=== PATIENT | female | born 1995 | race Caucasian/White ===

== ENCOUNTER 2016-03-24 12:30 | Outpatient (RCR) | payer MEDICAID ==
[~2016-03-24 12:30] MED LIST: AMOXICILLIN 50500 MG PO; BACTRIM DS 8001 TAB PO; BIRTH CONTROL PATCH; CANA100T PO; CEFTIN 250250 MG/TAB PO; CEFTIN250 M1 PO; CEFTIN500 MG PO; CIPRO 500MG TA500 MG PO; DEPO-ESTRADIO5 MG/ML IM; FLEXERIL 1010 MG/TAB PO; GLUCOPHAGE850 MG/TAB PO; IBU800 M1 PO; LEVEMIR100 U/ML SQ; LORTAB 5/500 501 TAB PO; MOTRIN 200200 MG/TAB PO; MOTRIN400 MG PO; NAPROSYN500 MG PO; NEXPLANON68 MG; NO HOME MEDICATIONS; NORCO 325 MG-51 TAB PO; NOVLOG SQ; NOVOLIN R100 U/ML SQ; PERCOCET 325 MG1 TA2 PO; PHENERGAN 25 TA25 MG PO; PRAVACHOL 20MG20 MG PO; PREDNISONE10 MG PO; PREDNISONE20 MG PO; PYRIDIUM 100MG100 MG PO; PYRIDIUM200 M1 PO; ULTRAM 50MG TAB50 MG PO; ZOFRAN ODT4 MG PO; ZOFRAN ODT8 MG PO; ZOVIRAX800 MG PO
== END 2016-04-12 12:42 | disposition still patient (30) ==
LOC: WSPT 12:30
DX: M54.5 Low back pain (principal)
CPT/HCPCS: G0283-GP

== ENCOUNTER → 2016-04-07 | Outpatient (CLI) | payer MEDICAID ==
[~2016-04-07] MED LIST changes: +COLACE 100100 MG/CAP PO; +GLUCOPHAGE XR750 MG PO; +MOTRIN 600600 MG/TAB PO; +PERCOCET 325 MG1 TA3 PO; +TRULICITY1.5 MG/0.5 SQ; +ZOCOR 10MG10 MG PO; +ZOFRAN8 MG PO
== END ==
LOC: COL.RAD 12:17
DX: M54.5 Low back pain (principal); M54.16 Radiculopathy, lumbar region

== ENCOUNTER 2016-06-17 00:29 | Emergency (ER) | payer MEDICAID ==
[~2016-06-17] VITALS: Ht 170.2 cm; Wt 109.1 kg
[~2016-06-17 00:29] MED LIST changes: -COLACE 100100 MG/CAP PO; -GLUCOPHAGE XR750 MG PO; -MOTRIN 600600 MG/TAB PO; -PERCOCET 325 MG1 TA3 PO; -TRULICITY1.5 MG/0.5 SQ; -ZOCOR 10MG10 MG PO; -ZOFRAN8 MG PO
[2016-06-17 00:31] VITALS: TEMP 98.1
[2016-06-17 01:38] LABS: PH 6 (5-8); URINE APPEARANCE Hazy; URINE BACTERIA Rare /hpf; URINE BILIRUBIN Negative (NEGATIVE); URINE BLOOD Negative (NEGATIVE); URINE COLOR Yellow; URINE GLUCOSE Negative (NEGATIVE); URINE KETONE Negative (NEGATIVE); URINE RBC 0-2 /hpf; URINE UROBILINOGEN Negative (NEGATIVE); URINE WBC 0-2 /hpf
[2016-06-17] MEDS ORDERED: PHENERGAN 25 TA25 MG PO (02:39)
[2016-06-17 02:49] VITALS: BP 156/105; PULSE 94
== END 2016-06-17 02:50 | disposition home or self-care (01) ==
LOC: COL.ER 00:29
PROVIDERS: Emergency Medicine
DX: K52.9 Noninfective gastroenteritis and colitis, unspecified (principal)
CPT/HCPCS: J2550; J7030

== ENCOUNTER 2016-10-15 15:48 | Emergency (ER) | payer MEDICAID ==
[~2016-10-15] VITALS: Ht 170.2 cm; Wt 112.7 kg
[2016-10-15 15:51] VITALS: TEMP 98
[2016-10-15] MEDS ORDERED: ZOCOR 10MG10 MG PO (15:53)
[2016-10-15] MEDS ORDERED: GLUCOPHAGE XR750 MG PO (15:53)
[2016-10-15] MEDS ORDERED: TRULICITY1.5 MG/0.5 SQ (15:54)
[2016-10-15] MEDS ORDERED: ULTRAM 50MG TAB50 MG PO (16:34)
[2016-10-15] MEDS ORDERED: ZOFRAN8 MG PO (16:34)
[2016-10-15 16:58] LABS: ADJUSTED CALCIUM 9.1 mg/dL (8.4-10.2); ALBUMIN 4.2 gm/dL (3.5-5.0); BILIRUBIN,TOTAL 0.9 mg/dL (0.0-1.0); CALCIUM 9.3 mg/dL (8.4-10.2); CREATININE, serum 0.59 mg/dL (0.52-1.25); POTASSIUM 3.9 mmol/L (3.4-5.0); TOTAL PROTEIN 7.2 gm/dL (6.4-8.2)
[2016-10-15 17:22] LABS: PH 5 (5-8); URINE APPEARANCE Clear; URINE BACTERIA Rare /hpf; URINE BILIRUBIN Negative (NEGATIVE); URINE BLOOD Negative (NEGATIVE); URINE COLOR Yellow; URINE GLUCOSE 3+ (NEGATIVE); URINE KETONE Negative (NEGATIVE); URINE RBC 0-2 /hpf; URINE UROBILINOGEN Negative (NEGATIVE); URINE WBC 0-2 /hpf
[2016-10-15 18:02] VITALS: BP 134/72; PULSE 72
== END 2016-10-15 18:03 | disposition home or self-care (01) ==
LOC: COL.ER 15:48
PROVIDERS: Emergency Medicine
DX: R10.13 Epigastric pain (principal); R10.12 Left upper quadrant pain; R19.7 Diarrhea, unspecified; E11.9 Type 2 diabetes mellitus without complications; E78.5 Hyperlipidemia, unspecified; F17.210 Nicotine dependence, cigarettes, uncomplicated; Z79.84 Long term (current) use of oral hypoglycemic drugs; Z98.890 Other specified postprocedural states
CPT/HCPCS: J1170; J1885; J2405; J7030

== ENCOUNTER 2016-11-14 20:33 | Observation (INO) | payer MEDICAID ==
[~2016-11-14] VITALS: Ht 170.2 cm; Wt 100.9 kg
[~2016-11-14 20:33] MED LIST changes: +GLUCOPHAGE XR750 MG PO; +TRULICITY1.5 MG/0.5 SQ; +ZOCOR 10MG10 MG PO; +ZOFRAN8 MG PO
[2016-11-14 21:10] LABS: BASO # 0.1 (0.0-0.2); BASO % 0.5 % (0.0-2.0); EOS # 0.2 (0.0-0.7); EOS % 1.4 % (0-4.0); GRAN # 7.5 (1.4-6.5); GRAN % 67.1 % (42.2-75.2); HEMOGLOBIN 15.3 g/dl (12.5-16.0); LYMPH # 2.8 (1.2-3.4); LYMPH % 25.1 % (20.0-51.0); MEAN CELL VOLUME 89 fl (80.0-100.0); MEAN CORPUSCULAR HEMOGLOBIN 30 pg (27.0-31.0); MEAN CORPUSCULAR HGB CONC 34 g/dl (33.0-37.0); MEAN PLATELET VOLUME 9.6 fl (7.4-10.4); MONO # 0.6 (0.1-0.6); MONO % 5.4 % (1.7-9.3); PLATELET COUNT 298 K/mm3 (130-400); RED BLOOD COUNT 5.08 M/mm3 (4.10-5.30); REDCELL DISTRIBUTION WIDTH-CV 12.4 % (11.5-14.5); WHITE BLOOD COUNT 11.1 K/mm3 (4.8-10.8)
[2016-11-14 21:15] LABS: PH 7 (5-8); URINE APPEARANCE Hazy; URINE BACTERIA Rare /hpf; URINE BILIRUBIN Negative (NEGATIVE); URINE BLOOD Negative (NEGATIVE); URINE COLOR Yellow; URINE GLUCOSE 3+ (NEGATIVE); URINE KETONE Negative (NEGATIVE); URINE UROBILINOGEN Negative (NEGATIVE)
[2016-11-14 21:24] LABS: ADJUSTED CALCIUM 9.3 mg/dL (8.4-10.2); ALBUMIN 4.5 gm/dL (3.5-5.0); BILIRUBIN,TOTAL 0.6 mg/dL (0.0-1.0); C-REACTIVE PROTEIN 1.3 mg/dL (0.0-0.9); CALCIUM 9.7 mg/dL (8.4-10.2); CREATININE, serum 0.68 mg/dL (0.52-1.25); POTASSIUM 3.8 mmol/L (3.4-5.0); TOTAL PROTEIN 7.9 gm/dL (6.4-8.2)
[2016-11-15] VITALS (13 sets, daily range): BP systolic 111–140; BP diastolic 50–97; PULSE 68–96; TEMP 97.8–99
[2016-11-15 08:10] LABS: BASO # 0.1 (0.0-0.2); BASO % 0.5 % (0.0-2.0); EOS # 0.1 (0.0-0.7); EOS % 0.9 % (0-4.0); GRAN # 11.4 (1.4-6.5); GRAN % 77.3 % (42.2-75.2); HEMATOCRIT 41.6 % (37.0-47.0); HEMOGLOBIN 13.8 g/dl (12.5-16.0); LYMPH # 2.3 (1.2-3.4); LYMPH % 15.7 % (20.0-51.0); MEAN CELL VOLUME 91 fl (80.0-100.0); MEAN CORPUSCULAR HEMOGLOBIN 30 pg (27.0-31.0); MEAN CORPUSCULAR HGB CONC 33 g/dl (33.0-37.0); MEAN PLATELET VOLUME 9.9 fl (7.4-10.4); MONO # 0.8 (0.1-0.6); MONO % 5.1 % (1.7-9.3); PLATELET COUNT 255 K/mm3 (130-400); RED BLOOD COUNT 4.57 M/mm3 (4.10-5.30); REDCELL DISTRIBUTION WIDTH-CV 12.5 % (11.5-14.5); WHITE BLOOD COUNT 14.8 K/mm3 (4.8-10.8)
[2016-11-16 01:29] VITALS: BP 117/66; PULSE 85; TEMP 98.1
[2016-11-16 05:31] VITALS: BP 110/63; PULSE 69; TEMP 98.3
[2016-11-16 09:52] VITALS: BP 117/49; PULSE 81; TEMP 98.1
[2016-11-16] MEDS ORDERED: PERCOCET 325 MG1 TA3 PO (12:48)
[2016-11-16] MEDS ORDERED: COLACE 100100 MG/CAP PO (12:49)
[2016-11-16] MEDS ORDERED: MOTRIN 600600 MG/TAB PO (12:49)
[2016-11-16 13:42] VITALS: BP 121/59; PULSE 89; TEMP 97.5
== END 2016-11-16 15:20 | disposition home or self-care (01) ==
LOC: COL.ER 20:33 → SURG 22:57
PROVIDERS: Emergency Medicine
DX: K38.8 Other specified diseases of appendix (principal); E11.9 Type 2 diabetes mellitus without complications; R16.0 Hepatomegaly, not elsewhere classified; K76.0 Fatty (change of) liver, not elsewhere classified; E66.9 Obesity, unspecified; F17.210 Nicotine dependence, cigarettes, uncomplicated; Z87.442 Personal history of urinary calculi; R06.83 Snoring
CPT/HCPCS: G0378; J1100; J1170; J1815; J1885; J2270; J2405; J2704; J2710; J3010; J7030

== ENCOUNTER 2017-02-14 12:00 | Emergency (ER) | payer MEDICAID ==
[~2017-02-14] VITALS: Ht 170.2 cm; Wt 107.7 kg
[~2017-02-14 12:00] MED LIST changes: +COLACE 100100 MG/CAP PO; +MOTRIN 600600 MG/TAB PO; +PERCOCET 325 MG1 TA3 PO
[2017-02-14 12:03] VITALS: BP 152/80; TEMP 97.5
[2017-02-14 13:40] LABS: COLLECTION METHOD CLEAN CATCH
[2017-02-14 13:47] LABS: BASO # 0.1 (0.0-0.2); BASO % 0.6 % (0.0-2.0); EOS # 0.2 (0.0-0.7); EOS % 1.3 % (0-4.0); GRAN # 7.4 (1.4-6.5); GRAN % 63.8 % (42.2-75.2); HEMATOCRIT 46.5 % (37.0-47.0); HEMOGLOBIN 16.2 g/dl (12.5-16.0); LYMPH # 3.4 (1.2-3.4); LYMPH % 29.2 % (20.0-51.0); MEAN CELL VOLUME 88 fl (80.0-100.0); MEAN CORPUSCULAR HEMOGLOBIN 31 pg (27.0-31.0); MEAN CORPUSCULAR HGB CONC 35 g/dl (33.0-37.0); MONO # 0.6 (0.1-0.6); MONO % 4.7 % (1.7-9.3); PLATELET COUNT 289 K/mm3 (130-400); RED BLOOD COUNT 5.31 M/mm3 (4.10-5.30); WHITE BLOOD COUNT 11.6 K/mm3 (4.8-10.8)
[2017-02-14 13:58] LABS: PH 6 (5-8); SQUAMOUS EPITHELIAL 0-2 /hpf; URINE APPEARANCE Clear; URINE BACTERIA None Seen /hpf; URINE BILIRUBIN Negative (NEGATIVE); URINE BLOOD Negative (NEGATIVE); URINE COLOR Straw; URINE GLUCOSE 3+ (NEGATIVE); URINE KETONE Trace (NEGATIVE); URINE LEUKOCYTE ESTERASE Negative (NEGATIVE); URINE PROTEIN(semi-quant) Negative (NEGATIVE); URINE UROBILINOGEN Negative (NEGATIVE); URINE WBC 0-2 /hpf
[2017-02-14 14:10] LABS: ADJUSTED CALCIUM 9.1 mg/dL (8.4-10.2); ALBUMIN 4.9 gm/dL (3.5-5.0); BILIRUBIN,TOTAL 0.6 mg/dL (0.0-1.0); CALCIUM 9.8 mg/dL (8.4-10.2); CREATININE, serum 0.64 mg/dL (0.52-1.25); POTASSIUM 3.7 mmol/L (3.4-5.0); TOTAL PROTEIN 8.1 gm/dL (6.4-8.2)
[2017-02-14] MEDS ORDERED: GLUCOPHAGE XR750 MG PO (14:20)
[2017-02-14] MEDS ORDERED: FREESTYLE PREC1 EAC5 MC (14:25)
[2017-02-14 15:04] VITALS: PULSE 81
== END 2017-02-14 15:08 | disposition home or self-care (01) ==
LOC: COL.ER 12:00
PROVIDERS: Emergency Medicine
DX: E11.65 Type 2 diabetes mellitus with hyperglycemia (principal); I10 Essential (primary) hypertension; E78.5 Hyperlipidemia, unspecified; F17.210 Nicotine dependence, cigarettes, uncomplicated; Z91.14 Patient's other noncompliance with medication regimen; Z79.84 Long term (current) use of oral hypoglycemic drugs
CPT/HCPCS: J7030

== ENCOUNTER 2017-04-19 09:11 | Emergency (ER) | payer MEDICAID ==
[~2017-04-19] VITALS: Ht 170.2 cm; Wt 104.5 kg
[~2017-04-19 09:11] MED LIST changes: +FREESTYLE PREC1 EAC5 MC
[2017-04-19 09:36] VITALS: BP 157/95; TEMP 98.3
[2017-04-19 12:02] VITALS: PULSE 88
== END 2017-04-19 12:03 | disposition home or self-care (01) ==
LOC: COL.ER 09:11
DX: J02.9 Acute pharyngitis, unspecified (principal); E11.9 Type 2 diabetes mellitus without complications; E78.5 Hyperlipidemia, unspecified; F17.210 Nicotine dependence, cigarettes, uncomplicated; Z90.89 Acquired absence of other organs

== ENCOUNTER 2017-06-06 22:04 | Emergency (ER) | payer MEDICAID ==
[~2017-06-06] VITALS: Ht 170.2 cm; Wt 100.0 kg
[2017-06-06 22:06] VITALS: TEMP 97.5
[2017-06-07] VITALS: BP 134/60; PULSE 70
== END 2017-06-07 00:03 | disposition home or self-care (01) ==
LOC: COL.ER 22:04
DX: S63.502A Unspecified sprain of left wrist, initial encounter (principal); E78.00 Pure hypercholesterolemia, unspecified; F17.210 Nicotine dependence, cigarettes, uncomplicated; E11.9 Type 2 diabetes mellitus without complications; W01.0XXA Fall on same level from slipping, tripping and stumbling without subsequent striking against object, initial encounter

== ENCOUNTER → 2017-12-18 | Outpatient (CLI) | payer MEDICAID | LOC: SUN.DIA 08:45 | DX: O24.419 Gestational diabetes mellitus in pregnancy, unspecified control (principal); Z3A.19 19 weeks gestation of pregnancy | CPT/HCPCS: G0108 ==

== ENCOUNTER 2017-12-20 09:20 | Emergency (ER) | payer MEDICAID ==
[~2017-12-20] VITALS: Ht 170.2 cm; Wt 105.0 kg
[2017-12-20 09:29] VITALS: TEMP 97.9
[2017-12-20] MEDS ORDERED: NOVOLOG FLEX100 U/ML SQ (09:32)
[2017-12-20] MEDS ORDERED: LEVEMIR FLEX100 U/ML SQ (09:32)
[2017-12-20] MEDS ORDERED: [UNRECOGNIZED DRUG - OTHER] PO (09:33)
[2017-12-20 10:25] LABS: BASO # 0.1 (0.0-0.2); BASO % 0.6 % (0.0-2.0); EOS # 0.1 (0.0-0.7); EOS % 0.5 % (0-4.0); GRAN # 7.9 (1.4-6.5); GRAN % 71.4 % (42.2-75.2); HEMATOCRIT 43.4 % (37.0-47.0); HEMOGLOBIN 14.8 g/dl (12.5-16.0); LYMPH # 2.4 (1.2-3.4); LYMPH % 22.1 % (20.0-51.0); MEAN CELL VOLUME 87 fl (80.0-100.0); MEAN CORPUSCULAR HEMOGLOBIN 30 pg (27.0-31.0); MEAN CORPUSCULAR HGB CONC 34 g/dl (33.0-37.0); MONO # 0.5 (0.1-0.6); MONO % 4.9 % (1.7-9.3); PLATELET COUNT 301 K/mm3 (130-400); RED BLOOD COUNT 4.97 M/mm3 (4.10-5.30); REDCELL DISTRIBUTION WIDTH-CV 11.9 % (11.5-14.5)
[2017-12-20 10:34] LABS: ALBUMIN 4.3 gm/dL (3.5-5.0); BILIRUBIN,TOTAL 0.7 mg/dL (0.0-1.0); CALCIUM 10.3 mg/dL (8.4-10.2); CREATININE, serum 0.56 mg/dL (0.52-1.25); POTASSIUM 3.9 mmol/L (3.4-5.0); TOTAL PROTEIN 7.9 gm/dL (6.4-8.2)
[2017-12-20] MEDS ORDERED: ZOFRAN ODT8 MG PO (13:28)
[2017-12-20 13:41] VITALS: BP 98/53; PULSE 81
== END 2017-12-20 13:43 | disposition home or self-care (01) ==
LOC: COL.ER 09:20
PROVIDERS: Emergency Medicine
DX: O26.891 Other specified pregnancy related conditions, first trimester (principal); R51 Headache; O21.9 Vomiting of pregnancy, unspecified; O24.911 Unspecified diabetes mellitus in pregnancy, first trimester; Z3A.01 Less than 8 weeks gestation of pregnancy; Z79.4 Long term (current) use of insulin
CPT/HCPCS: J1200; J2405; J2765; J7030; Q9967

== ENCOUNTER 2018-01-29 14:45 | Emergency (ER) | payer MEDICAID ==
[~2018-01-29] VITALS: Ht 170.2 cm; Wt 100.0 kg
[~2018-01-29 14:45] MED LIST changes: +LEVEMIR FLEX100 U/ML SQ; +NOVOLOG FLEX100 U/ML SQ; +[UNRECOGNIZED DRUG - OTHER] PO
[2018-01-29 14:51] VITALS: BP 121/59; PULSE 102; TEMP 98.4
[2018-01-29] MEDS ORDERED: BACTRIM DS 8001 TAB PO (15:07)
== END 2018-01-29 15:37 | disposition home or self-care (01) ==
LOC: COL.ER 14:45
DX: L03.011 Cellulitis of right finger (principal); E11.9 Type 2 diabetes mellitus without complications; Z79.4 Long term (current) use of insulin

== ENCOUNTER 2018-05-26 10:50 | Outpatient (CLI) | payer MEDICAID ==
[~2018-05-26] VITALS: Ht 170.2 cm; Wt 114.5 kg
--- NOTE | 2018-05-26 11:00 | NUR ---
Patient ambulatory onto unit for evaluation with report of decreased movement. Reports not feeling baby move since yesterday morning. Denies any cramping, contractions, vaginal bleeding, or leaking of fluid. Denies nausea, vomiting, or any other complaints. Reports last blood sugar was 95, taken at 1045. States blood sugars have been within normal limits. EFMs on, VS taken. Audible movement. Assessment completed by Ellen MUHAMMAD. notified of patient on unit, orders received.
[2018-05-26 11:05] VITALS: BP 135/63; PULSE 88; TEMP 97.3
[2018-05-26 11:30] VITALS: BP 135/63; PULSE 88; TEMP 97.3
--- NOTE | 2018-05-26 11:30 | NUR ---
1130-FHR with audible movment, difficulty tracing due to maternal habitus and movement, repositioned LL. Patient states "I can really feel movement now." 1155-patient off EFM 1200-Reviewed kick counts and when to return to hospital. Reviewed discharge instructions from MD. Patient verbalized understanding. 1204-Ambulatory off unit with siginifican other.
[2018-05-26 11:55] VITALS: BP 119/66; PULSE 93
== END 2018-05-26 12:04 | disposition home or self-care (01) ==
LOC: LDRO 10:50
DX: O36.8130 Decreased fetal movements, third trimester, not applicable or unspecified (principal); Z3A.29 29 weeks gestation of pregnancy

== ENCOUNTER 2018-07-24 02:05 | Outpatient (CLI) | payer MEDICAID ==
[~2018-07-24] VITALS: Ht 170.2 cm; Wt 118.2 kg
--- NOTE | 2018-07-24 02:20 | NUR ---
PT HER WITH FOB FOR SROM EXAM. STATES SHE HAS MOISTURE FROM VAGINA BEGINNING AT 22 LAST NIGHT.
[2018-07-24] MEDS ORDERED: NOVOLOG 100U100 U/M1 SQ (02:39)
[2018-07-24] MEDS ORDERED: LEVEMIR100 U/ML SQ (02:40)
[2018-07-24 02:41] VITALS: BP 132/62; PULSE 108; TEMP 98.5
--- NOTE | 2018-07-24 02:50 | NUR ---
LIFETRACE OLIVE GREEN,SINLE SPOT OF DK BLUE. PT GIVEN PAD TO WEAR AND AMBULATE TO REASSESS. GEL WAS NOT USED FOR INITIAL EXAM.NO VISIBLE FLUID WHEN ASKED TO COUGH
--- NOTE | 2018-07-24 03:25 | NUR ---
0320 HAS AMBULATED 30 MIN WITH CLEAN PD. NO FURTHER FLUID LEAKING. SWAB OF PAD NEGATIVE. DENIES CTXS. REPORTED TO DR VIRAMONTES. DISCHARGE ORDERS OBTAINED
--- NOTE | 2018-07-24 03:25 | NUR ---
DISCHARGE INSTR REVIEWED WITH PT. VERBALIZED UNDERTANDING RE:S/S OF SROM AND WHEN TO CALL OR COME TO HOSPITALOR OFFICE FOR EXAM
== END 2018-07-24 03:30 | disposition home or self-care (01) ==
LOC: LDRO 02:05
DX: Z34.93 Encounter for supervision of normal pregnancy, unspecified, third trimester (principal); Z3A.38 38 weeks gestation of pregnancy

== ENCOUNTER 2018-07-30 06:59 | Inpatient (IN) | payer MEDICAID ==
[2018-07-30] VITALS (50 sets, daily range): BP systolic 88–146; BP diastolic 45–86; PULSE 75–142; TEMP 97.4–99.4
[~2018-07-30] VITALS: Ht 170.2 cm; Wt 119.1 kg
[~2018-07-30 06:59] MED LIST changes: +NOVOLOG 100U100 U/M1 SQ
--- NOTE | 2018-07-30 07:10 | NUR ---
Pt arrives on unit ambulatory with FOB for induction of labor at 39.1 weeks gestation. Pt states good FM, denies vaginal bleeding, regular contractions, and leaking of fluid. Oriented to room. Changed into clean gown. FHM and TOCO applied. VSS. IV started in RW. Admission assessment completed. Consents signed. Bed locked in low position. No questions or concerns at this time.
[2018-07-30] MEDS ORDERED: LEVEMIR FLEX100 U/ML SQ (07:27)
[2018-07-30 07:54] LABS: BASO # 0.1 (0.0-0.2); BASO % 0.5 % (0.0-2.0); EOS # 0.1 (0.0-0.7); EOS % 0.8 % (0-4.0); GRAN # 7.4 (1.4-6.5); GRAN % 69.9 % (42.2-75.2); HEMOGLOBIN 11.7 g/dl (12.5-16.0); LYMPH # 2.4 (1.2-3.4); LYMPH % 23.1 % (20.0-51.0); MEAN CELL VOLUME 85 fl (80.0-100.0); MEAN CORPUSCULAR HEMOGLOBIN 28 pg (27.0-31.0); MEAN CORPUSCULAR HGB CONC 33 g/dl (33.0-37.0); MEAN PLATELET VOLUME 9.4 fl (7.4-10.4); MONO # 0.5 (0.1-0.6); MONO % 4.8 % (1.7-9.3); PLATELET COUNT 249 K/mm3 (130-400); RED BLOOD COUNT 4.23 M/mm3 (4.10-5.30); REDCELL DISTRIBUTION WIDTH-CV 13.6 % (11.5-14.5)
[2018-07-30 08:28] LABS: TRICYCLIC ANTIDEPRESS URINE NEGATIVE
--- NOTE | 2018-07-30 11:59 | NUR ---
Pt up to [facility]. 1205 - Returns to birthing ball. Difficulty tracing FHR due to maternal position. RN at bedside adjusting monitors. FHR audible. 1220 - Pt requesting epidural at this time. Sitting up in bed. Difficulty tracing FHR due to maternal position. RN at bedside adjusting monitors. FHR audible. 1242 - Test dose administered by Roselia Jones CRNA. No adverse effects noted. See anesthesia record.
--- NOTE | 2018-07-30 17:20 | NUR ---
Pt reports feeling pressure. RN at bedside. SVE 9-10/100/0.
--- NOTE | 2018-07-30 17:25 | NUR ---
Pt calling out with increase of pressure. SVE per this RN C/+2. Dr. Pyle called for delivery. 1728-Dr. Pyle on unit. Begins pushing with pt. 1732- of viable female infant attended by Dr. Pyle. Cord clamped x 2 and cut from umbilicus. Infant dried and placed on mother's abdomen. Apgars 8/9/9. Care of infant to Genny Guthrie RN. 1739- of placenta. Fundus firm at umbilicus. Bleeding WNL. Pericare provided. Pitocin bolus infusing per protocol. 1741-Moderate amount of free flow noted. Orders per Dr. Pyle for methergine. See EMAR.
--- NOTE | 2018-07-30 18:20 | NUR ---
AC BS 117
--- NOTE | 2018-07-30 21:30 | NUR ---
BG 119
--- NOTE | 2018-07-30 23:07 | NUR ---
TO BRI PER FOR BATH DEMO
[2018-07-31] VITALS: BP 108/54; PULSE 90; TEMP 98.8
[2018-07-31 04:00] VITALS: BP 117/62; PULSE 91; TEMP 97.6
--- NOTE | 2018-07-31 06:30 | NUR ---
Fasting blood glucose per patient is 80.
[2018-07-31 07:00] VITALS: BP 127/73; PULSE 85; TEMP 97.8
--- NOTE | 2018-07-31 09:00 | NUR ---
AC blood sugar per patient is 95
--- NOTE | 2018-07-31 10:07 | NUR ---
Initial visit; Parents thanked for offering congratulations for the of their daughter. Laborer Operator thanked family for choosing [facility].
--- NOTE | 2018-07-31 10:07 | NUR ---
fast foods worker met with patient to assess needs. Patient states she has a 4 year old at home and she is a stay at home mom. Patient states she is enrolled in WIC and has all needed supplies for her baby. Worker provided layette set from [employer] and resource booklet/pamphlets. Worker collaborated with nurse on needs assessment.
[2018-07-31 10:55] VITALS: BP 115/72; PULSE 82; TEMP 97.7
--- NOTE | 2018-07-31 14:00 | NUR ---
AC blood sugar per patient is 138.
[2018-07-31 15:03] VITALS: BP 119/65; PULSE 93; TEMP 98.5
[2018-07-31 21:30] VITALS: BP 119/58; PULSE 84; TEMP 98.4
[2018-08-01 07:00] VITALS: BP 115/72; PULSE 78; TEMP 97.4
--- NOTE | 2018-08-01 07:00 | NUR ---
Rests in bed, alert. Assessment done. Baby to lab for repeat bilirubin. Reports blood sugar at 67. States eating some salad and dressing. Says has ordered breakfast. Let her know to notify this nurse if needing anything else to eat.
[2018-08-01] MEDS ORDERED: IBU600 MG PO (07:44)
--- NOTE | 2018-08-01 13:00 | NUR ---
Rests in bed, alert. Denies any needs at this time.
--- NOTE | 2018-08-01 15:00 | NUR ---
Discharge instructions given, verbalizes understanding. 1515 Dismissed to home with instructions. Alert, stable, ambulatory.
--- NOTE | 2018-08-02 08:29 | NUR ---
SW received cord blood results. Baby's tests were all negative.
== END 2018-08-01 15:15 | disposition home or self-care (01) | DRG 807 ==
LOC: LDR 06:59 → OB 06:59 → LDR 07:14 → OB 20:45
PROVIDERS: ADMIT Obstetrics & Gynecology
PROC: 10E0XZZ Delivery of Products of Conception, External Approach (ICD-10-PCS; principal; 2018-07-30)
PROC: 10907ZC Drainage of Amniotic Fluid, Therapeutic from Products of Conception, Via Natural or Artificial Opening (ICD-10-PCS; 2018-07-30)
PROC: 3E033VJ Introduction of Other Hormone into Peripheral Vein, Percutaneous Approach (ICD-10-PCS; 2018-07-30)
DX: O24.12 Pre-existing type 2 diabetes mellitus, in childbirth (principal); Z37.0 Single live birth; O99.344 Other mental disorders complicating childbirth; O99.214 Obesity complicating childbirth; O62.2 Other uterine inertia; O99.62 Diseases of the digestive system complicating childbirth; K21.9 Gastro-esophageal reflux disease without esophagitis; F41.9 Anxiety disorder, unspecified; F32.9 Major depressive disorder, single episode, unspecified; Z3A.39 39 weeks gestation of pregnancy; Z79.4 Long term (current) use of insulin
CPT/HCPCS: J1200; J2210; J2405; J2540; J2590; J7030

== ENCOUNTER 2018-10-02 02:13 | Emergency (ER) | payer MEDICAID ==
[~2018-10-02] VITALS: Ht 170.2 cm; Wt 108.2 kg
[~2018-10-02 02:13] MED LIST changes: +IBU600 MG PO
[2018-10-02 02:21] VITALS: TEMP 98
[2018-10-02] MEDS ORDERED: GLUCOPHAGE500 MG/TAB PO (02:23)
[2018-10-02] MEDS ORDERED: PROZAC 10MG10 MG PO (02:23)
[2018-10-02] MEDS ORDERED: BIRTH CONTROL (02:24)
[2018-10-02 02:35] LABS: BASO % 0.3 % (0.0-2.0); EOS # 0.1 (0.0-0.7); EOS % 0.8 % (0-4.0); GRAN # 7.1 (1.4-6.5); HEMATOCRIT 40.2 % (37.0-47.0); HEMOGLOBIN 12.9 g/dl (12.5-16.0); LYMPH % 34.4 % (20.0-51.0); MEAN CELL VOLUME 85 fl (80.0-100.0); MEAN CORPUSCULAR HEMOGLOBIN 27 pg (27.0-31.0); MEAN CORPUSCULAR HGB CONC 32 g/dl (33.0-37.0); MEAN PLATELET VOLUME 9.1 fl (7.4-10.4); MONO # 0.5 (0.1-0.6); MONO % 4.2 % (1.7-9.3); PLATELET COUNT 313 K/mm3 (130-400); RED BLOOD COUNT 4.76 M/mm3 (4.10-5.30); REDCELL DISTRIBUTION WIDTH-CV 14.1 % (11.5-14.5)
[2018-10-02 02:48] LABS: ALBUMIN 3.9 gm/dL (3.5-5.0); BILIRUBIN,TOTAL 0.2 mg/dL (0.0-1.0); C-REACTIVE PROTEIN 1.5 mg/dL (0.0-0.9); CALCIUM 9.4 mg/dL (8.4-10.2); CREATININE, serum 0.84 (0.52-1.25); TOTAL PROTEIN 7.2 gm/dL (6.4-8.2)
[2018-10-02 03:01] LABS: COLLECTION METHOD CLEAN CATCH
[2018-10-02 03:10] LABS: URINE APPEARANCE Hazy; URINE COLOR Yellow
[2018-10-02 03:11] LABS: PH 5 (5-8); URINE BILIRUBIN Negative (NEGATIVE); URINE BLOOD Negative (NEGATIVE); URINE GLUCOSE Negative (NEGATIVE); URINE KETONE Negative (NEGATIVE); URINE LEUKOCYTE ESTERASE Trace (NEGATIVE); URINE NITRATE Negative (NEGATIVE); URINE PROTEIN(semi-quant) 1+ (NEGATIVE); URINE UROBILINOGEN Negative (NEGATIVE)
[2018-10-02] MEDS ORDERED: PHENERGAN 25 TA25 MG PO (04:45)
[2018-10-02 06:16] VITALS: BP 131/86; PULSE 86
== END 2018-10-02 06:28 | disposition home or self-care (01) ==
LOC: COL.ER 02:13
PROVIDERS: Nurse Practitioner
DX: R10.11 Right upper quadrant pain (principal); E11.9 Type 2 diabetes mellitus without complications; F12.90 Cannabis use, unspecified, uncomplicated; Z87.442 Personal history of urinary calculi; Z79.84 Long term (current) use of oral hypoglycemic drugs; Z90.89 Acquired absence of other organs
CPT/HCPCS: J1170; J2405; J2550; J7030; Q9967

== ENCOUNTER → 2018-10-12 | Outpatient (CLI) | payer MEDICAID ==
[~2018-10-12] MED LIST changes: +BIRTH CONTROL; +GLUCOPHAGE500 MG/TAB PO; +PROZAC 10MG10 MG PO
== END ==
LOC: ZCOL.LAB 16:51
DX: N89.8 Other specified noninflammatory disorders of vagina (principal)

== ENCOUNTER 2018-12-12 14:03 | Emergency (ER) | payer MEDICAID ==
[~2018-12-12] VITALS: Ht 170.2 cm; Wt 111.4 kg
[2018-12-12 14:12] VITALS: BP 155/91
[2018-12-12 14:54] LABS: BASO # 0.1 (0.0-0.2); BASO % 0.8 % (0.0-2.0); EOS # 0.1 (0.0-0.7); GRAN # 5.5 (1.4-6.5); GRAN % 63.3 % (42.2-75.2); HEMATOCRIT 42.2 % (37.0-47.0); HEMOGLOBIN 14.1 g/dl (12.5-16.0); LYMPH # 2.5 (1.2-3.4); LYMPH % 28.5 % (20.0-51.0); MEAN CELL VOLUME 84 fl (80.0-100.0); MEAN CORPUSCULAR HEMOGLOBIN 28 pg (27.0-31.0); MEAN CORPUSCULAR HGB CONC 33 g/dl (33.0-37.0); MEAN PLATELET VOLUME 8.9 fl (7.4-10.4); MONO # 0.5 (0.1-0.6); MONO % 5.9 % (1.7-9.3); PLATELET COUNT 304 K/mm3 (130-400); REDCELL DISTRIBUTION WIDTH-CV 12.7 % (11.5-14.5)
[2018-12-12 14:59] LABS: COLLECTION METHOD CLEAN CATCH
[2018-12-12 15:07] LABS: MUCOUS Present /lpf; PH 5 (5-8); URINE APPEARANCE Hazy; URINE BACTERIA Rare /hpf; URINE BILIRUBIN Negative (NEGATIVE); URINE BLOOD Negative (NEGATIVE); URINE COLOR Yellow; URINE GLUCOSE Negative (NEGATIVE); URINE KETONE Negative (NEGATIVE); URINE LEUKOCYTE ESTERASE Negative (NEGATIVE); URINE NITRATE Negative (NEGATIVE); URINE PROTEIN(semi-quant) 1+ (NEGATIVE); URINE RBC 0-2 /hpf; URINE UROBILINOGEN Negative (NEGATIVE)
[2018-12-12 15:09] LABS: ALBUMIN 4.2 gm/dL (3.5-5.0); BILIRUBIN,TOTAL 0.4 mg/dL (0.0-1.0); CALCIUM 9.4 mg/dL (8.4-10.2); CREATININE, serum 0.51 (0.52-1.25); TOTAL PROTEIN 7.8 gm/dL (6.4-8.2)
[2018-12-12] MEDS ORDERED: BONINE25 MG PO (15:33)
[2018-12-12 15:44] VITALS: PULSE 78; TEMP 98.2
== END 2018-12-12 15:47 | disposition home or self-care (01) ==
LOC: COL.ER 14:03
PROVIDERS: Family Medicine
DX: H81.22 Vestibular neuronitis, left ear (principal); E11.9 Type 2 diabetes mellitus without complications; Z79.84 Long term (current) use of oral hypoglycemic drugs
CPT/HCPCS: J7030

== ENCOUNTER → 2019-01-09 | Outpatient (CLI) | payer MEDICAID ==
[~2019-01-09] MED LIST changes: +BONINE25 MG PO
== END ==
LOC: COL.RAD 10:38
DX: R05 Cough (principal)

== ENCOUNTER 2019-01-20 20:23 | Emergency (ER) | payer MEDICAID ==
[~2019-01-20] VITALS: Ht 170.2 cm; Wt 113.6 kg
[2019-01-20 20:31] VITALS: TEMP 98.3
[2019-01-20 23:31] VITALS: BP 136/86; PULSE 85
== END 2019-01-20 23:31 | disposition home or self-care (01) ==
LOC: COL.ER 20:23
DX: R51 Headache (principal); E11.9 Type 2 diabetes mellitus without complications; Z87.891 Personal history of nicotine dependence; Z87.442 Personal history of urinary calculi; Z79.84 Long term (current) use of oral hypoglycemic drugs
CPT/HCPCS: J1200; J1885; J2765; J7030

== ENCOUNTER → 2019-03-12 | Outpatient (CLI) | payer MEDICAID ==
[2019-03-12 12:23] LABS: CHOLESTEROL RISK RATIO 6.5
[2019-03-12 12:55] LABS: THYROID STIMULATING HORMONE 1.13 uIU/mL (0.465-4.680)
== END ==
LOC: COL.LAB 11:43
PROVIDERS: Family Medicine
DX: Z13.220 Encounter for screening for lipoid disorders (principal); Z13.228 Encounter for screening for other metabolic disorders; E11.65 Type 2 diabetes mellitus with hyperglycemia; E66.01 Morbid (severe) obesity due to excess calories

== ENCOUNTER 2019-04-04 13:12 | Emergency (ER) | payer MEDICAID ==
[~2019-04-04] VITALS: Ht 170.2 cm; Wt 111.4 kg
[2019-04-04 13:16] VITALS: TEMP 97.5
[2019-04-04 13:46] LABS: BASO # 0.1 (0.0-0.2); BASO % 0.8 % (0.0-2.0); EOS # 0.1 (0.0-0.7); EOS % 0.8 % (0-4.0); GRAN # 6.3 (1.4-6.5); GRAN % 64.6 % (42.2-75.2); HEMATOCRIT 44.5 % (37.0-47.0); HEMOGLOBIN 14.9 g/dl (12.5-16.0); LYMPH # 2.8 (1.2-3.4); LYMPH % 28.4 % (20.0-51.0); MEAN CELL VOLUME 85 fl (80.0-100.0); MEAN CORPUSCULAR HEMOGLOBIN 29 pg (27.0-31.0); MEAN CORPUSCULAR HGB CONC 34 g/dl (33.0-37.0); MEAN PLATELET VOLUME 9.3 fl (7.4-10.4); MONO # 0.5 (0.1-0.6); MONO % 5.1 % (1.7-9.3); PLATELET COUNT 310 K/mm3 (130-400); RED BLOOD COUNT 5.21 M/mm3 (4.10-5.30); REDCELL DISTRIBUTION WIDTH-CV 12.6 % (11.5-14.5)
[2019-04-04] MEDS ORDERED: PHENERGAN 25 TA25 MG PO (13:59)
[2019-04-04 14:01] LABS: ALBUMIN 4.2 gm/dL (3.5-5.0); BILIRUBIN,TOTAL 0.5 mg/dL (0.0-1.0); CALCIUM 9.4 mg/dL (8.4-10.2); CREATININE, serum 0.51 (0.52-1.25); POTASSIUM 4.3 mmol/L (3.4-5.0); TOTAL PROTEIN 7.9 gm/dL (6.4-8.2)
[2019-04-04 15:21] LABS: COLLECTION METHOD CLEAN CATCH
[2019-04-04 15:30] LABS: MUCOUS Present /lpf; PH 5 (5-8); SQUAMOUS EPITHELIAL 0-2 /hpf; URINE APPEARANCE Clear; URINE BACTERIA None Seen /hpf; URINE BILIRUBIN Negative (NEGATIVE); URINE BLOOD Negative (NEGATIVE); URINE COLOR Yellow; URINE GLUCOSE 3+ (NEGATIVE); URINE KETONE Trace (NEGATIVE); URINE LEUKOCYTE ESTERASE Negative (NEGATIVE); URINE NITRATE Negative (NEGATIVE); URINE PROTEIN(semi-quant) Negative (NEGATIVE); URINE RBC 0-2 /hpf; URINE UROBILINOGEN Negative (NEGATIVE)
[2019-04-04 15:49] VITALS: BP 127/79; PULSE 84
[2019-04-10] MEDS ORDERED: LEVEMIR FLEX100 U/ML SQ (10:06)
[2019-04-10] MEDS ORDERED: NOVOLOG FLEX100 U/ML SQ (10:07)
== END 2019-04-04 15:50 | disposition home or self-care (01) ==
LOC: COL.ER 13:12
PROVIDERS: Emergency Medicine
DX: R11.2 Nausea with vomiting, unspecified (principal); R19.7 Diarrhea, unspecified; E86.0 Dehydration; E11.9 Type 2 diabetes mellitus without complications; Z90.89 Acquired absence of other organs; Z79.84 Long term (current) use of oral hypoglycemic drugs
CPT/HCPCS: J0780; J1170; J2405; J7030

== ENCOUNTER 2019-05-23 09:11 | Emergency (ER) | payer MEDICAID ==
[~2019-05-23] VITALS: Ht 170.2 cm; Wt 110.0 kg
[2019-05-23 09:22] VITALS: BP 136/96
[2019-05-23] MEDS ORDERED: TAMIFLU 75MG75 MG PO (10:32)
[2019-05-23] MEDS ORDERED: ZOFRAN ODT4 MG PO (10:33)
[2019-05-23 11:03] VITALS: PULSE 102; TEMP 98.6
== END 2019-05-23 11:03 | disposition home or self-care (01) ==
LOC: COL.ER 09:11
DX: J10.1 Influenza due to other identified influenza virus with other respiratory manifestations (principal); E11.9 Type 2 diabetes mellitus without complications; F17.210 Nicotine dependence, cigarettes, uncomplicated; Z79.4 Long term (current) use of insulin

== ENCOUNTER 2019-07-20 21:59 | Emergency (ER) | payer MEDICAID ==
[~2019-07-20] VITALS: Ht 17.8 cm; Wt 113.6 kg
[~2019-07-20 21:59] MED LIST changes: +TAMIFLU 75MG75 MG PO
[2019-07-20 22:02] VITALS: BP 137/85; PULSE 123; TEMP 97.5
[2019-07-20] MEDS ORDERED: NORCO 325 MG-51 TAB PO (23:49)
[2019-07-20] MEDS ORDERED: CRUTCHES MC (23:50)
== END 2019-07-21 00:07 | disposition home or self-care (01) ==
LOC: COL.ER 21:59
DX: O9A.211 Injury, poisoning and certain other consequences of external causes complicating pregnancy, first trimester (principal); S82.001A Unspecified fracture of right patella, initial encounter for closed fracture; O24.111 Pre-existing type 2 diabetes mellitus, in pregnancy, first trimester; O99.331 Smoking (tobacco) complicating pregnancy, first trimester; Z79.4 Long term (current) use of insulin; Y04.8XXA Assault by other bodily force, initial encounter; Y92.009 Unspecified place in unspecified non-institutional (private) residence as the place of occurrence of the external cause
CPT/HCPCS: L1846

== ENCOUNTER 2019-11-27 18:20 | Emergency (ER) | payer MEDICAID ==
[~2019-11-27] VITALS: Ht 170.2 cm; Wt 117.3 kg
[~2019-11-27 18:20] MED LIST changes: +CRUTCHES MC
[2019-11-27 18:31] VITALS: TEMP 98.2
[2019-11-27 21:20] VITALS: BP 139/82; PULSE 83
== END 2019-11-27 21:20 | disposition home or self-care (01) ==
LOC: COL.ER 18:20
DX: O22.43 Hemorrhoids in pregnancy, third trimester (principal); O24.113 Pre-existing type 2 diabetes mellitus, in pregnancy, third trimester; Z3A.31 31 weeks gestation of pregnancy; Z79.4 Long term (current) use of insulin; Z87.891 Personal history of nicotine dependence

== ENCOUNTER → 2020-01-17 | Outpatient (CLI) | payer MEDICAID ==
[~2020-01-17] MED LIST changes: +CEPHALEXIN500 M1 PO; +PROAIR HFA0.09 MG/AC IH
== END | disposition still patient (30) ==
LOC: ZCOL.LAB 04:51
DX: Z20.828 Contact with and (suspected) exposure to other viral communicable diseases (principal)

== ENCOUNTER 2020-01-21 06:39 | Inpatient (IN) | payer MEDICAID ==
[2020-01-21] VITALS (35 sets, daily range): BP systolic 100–167; BP diastolic 52–85; PULSE 79–116; TEMP 97.7–98.6
[~2020-01-21] VITALS: Ht 170.2 cm; Wt 125.5 kg
[~2020-01-21 06:39] MED LIST changes: -CEPHALEXIN500 M1 PO; -PROAIR HFA0.09 MG/AC IH
--- NOTE | 2020-01-21 06:50 | NUR ---
Pt arrives on unit ambulatory with FOB for IOL. Changed into clean gown. EFM and toco applied. VSS. Denies regular ctx, LOF, vaginal bleeding, and reports GFM. IV started in LW. Labs drawn. LR infusing. Admission asseessment completed. Consents signed. Oriented to room. Updated on POC. Bed locked in low position. Call light within reach. IDT2DM. Last blood sugar at 0600 100 per pt report.
[2020-01-21] MEDS ORDERED: PROAIR HFA0.09 MG/AC IH (07:04)
[2020-01-21 08:10] LABS: BASO % 0.4 % (0.0-2.0); EOS # 0.1 (0.0-0.7); EOS % 0.9 % (0-4.0); GRAN # 6.3 (1.4-6.5); GRAN % 64.1 % (42.2-75.2); HEMOGLOBIN 11.2 g/dl (12.5-16.0); LYMPH # 2.6 (1.2-3.4); LYMPH % 26.9 % (20.0-51.0); MEAN CELL VOLUME 79 fl (80.0-100.0); MEAN CORPUSCULAR HEMOGLOBIN 25 pg (27.0-31.0); MEAN CORPUSCULAR HGB CONC 32 g/dl (33.0-37.0); MEAN PLATELET VOLUME 9.4 fl (7.4-10.4); MONO # 0.6 (0.1-0.6); MONO % 6.5 % (1.7-9.3); PLATELET COUNT 299 K/mm3 (130-400); RED BLOOD COUNT 4.43 M/mm3 (4.10-5.30); REDCELL DISTRIBUTION WIDTH-CV 14.2 % (11.5-14.5)
[2020-01-21 08:18] LABS: HEMATOCRIT 35.1 % (37.0-47.0)
--- NOTE | 2020-01-21 08:22 | NUR ---
Dr. Pyle at bedside. Bedside US confirms vertex position. 0835-AROM of clear fluid performed by provider. Orders to increase pitocin up to 8mU.
--- NOTE | 2020-01-21 08:55 | NUR ---
BGM 109
--- NOTE | 2020-01-21 09:37 | NUR ---
Difficulty tracing FHR due to maternal position. Rn at bedside adjusting montiors. FHR audible.
--- NOTE | 2020-01-21 10:40 | NUR ---
Pt states feeling lightheaded/dizzy with an intense pressure on chest and shortness of breath. Blood sugar 86 per patient. Pt states feeling "like this when my blood sugar is below 90, but I've never had this feeling in my chest." [place] juice given. O2 sat applied. Lungs ascultated. Lung sounds clear in all maldonado. Zofran given. Dr. Pyle notified. No new orders.
--- NOTE | 2020-01-21 12:15 | NUR ---
Blood sugar 107. Second dose of Merry infusing. SVE /-1. Pt repositioned LL with side stirrups.
--- NOTE | 2020-01-21 13:12 | NUR ---
Pt calls out stating increased pressure. SVE per this RN 9-10/100/0. Dr. Pyle notified. Requested to unit for delivery. 1329-Dr. Pyle at bedside. Begins pushing with patient. 1335- of viable female attended by Dr. Pyle. Cord clamped x 2 and cut from umbilicus. Infant dried and placed on mother's abdomen. Care of infant to Sid Carpenter RN. Apgars 8/9/9. 1340- of placenta. Fundus firm at umbilicus. Bleeding WNL. Pitocin bolus infusing per protocol. Laceration repair per provider. Pericare performed. Ice pack applied. Bed locked in low position. Call ligth within reach. Updated on POC. No questions or concerns at this time.
--- NOTE | 2020-01-21 15:11 | NUR ---
BGM 116
--- NOTE | 2020-01-21 17:15 | NUR ---
Blood sugar 164. Pt administers 10u insulin.
--- NOTE | 2020-01-21 18:45 | NUR ---
Report recieved. Resting in bed. Updated [place]. Reviewed POC. Motrin administered. Getting up to restroom and going to feed infant. Denied questions or concerns.
--- NOTE | 2020-01-21 19:00 | NUR ---
PP BS per patient - 150.
--- NOTE | 2020-01-21 22:15 | NUR ---
Reports HS BS was 67. Kathleen and orange juice to bedside. To recheck BS prior to administration of bedside insulin. VS obtained. Reports pain 6 out of 10 and requests second percocet. Administered at this time. Denied further questions or concerns.
--- NOTE | 2020-01-21 22:32 | NUR ---
BS recheck 95 per patient. Patient states she took her own night time insulin.
[2020-01-22 04:00] VITALS: BP 121/73; PULSE 76; TEMP 98
[2020-01-22 07:15] VITALS: BP 138/66; PULSE 75; TEMP 97.4
--- NOTE | 2020-01-22 07:15 | NUR ---
Patient states fasting FSBS 65
--- NOTE | 2020-01-22 09:23 | NUR ---
Initial visit; Parents thanked for offering congratulations for the of their daughter. Maintenance Chief thanked family for choosing our hospital.
[2020-01-22] MEDS ORDERED: IBU600 MG PO (09:24)
--- NOTE | 2020-01-22 10:40 | NUR ---
FSBS 134 per pt report
[2020-01-22 12:00] VITALS: BP 128/63; PULSE 85; TEMP 98.1
--- NOTE | 2020-01-22 15:00 | NUR ---
FSBS 150 per patient report
[2020-01-22 16:15] VITALS: BP 133/69; PULSE 87; TEMP 98.5
[2020-01-22 21:00] VITALS: BP 129/68; PULSE 92; TEMP 98.5
[2020-01-23 02:10] VITALS: BP 128/62; PULSE 81; TEMP 97.8
--- NOTE | 2020-01-23 06:30 | NUR ---
0630-Recieved report from SABINA Mann. Patient resting quietly, baby in nursery under phototherapy. fast food shift lead RN reports fasting BG at 0530 "70" per patient. Reports patient had snack of toast and requested PRN percocet which was given by SABINA Mann see EMAR. Will assume care of patient at this time.
[2020-01-23 07:00] VITALS: BP 141/80; PULSE 84; TEMP 98.2
--- NOTE | 2020-01-23 10:30 | NUR ---
1030-Patient reports blood glucose reading 80
--- NOTE | 2020-01-23 11:30 | NUR ---
1130-Reviewed discharge instructions with patient. Patient verbalized understanding. Denies questions. Provided appointment information and instructed on newly prescribed motrin and when to take next. Denies questions. 1215-Ambulatory off unit with infant and spouse, escorted by Isabellecommunity service officer.
== END 2020-01-23 12:15 | disposition home or self-care (01) | DRG 807 ==
LOC: OB 06:39 → LDR 06:39 → OB 11:01
PROVIDERS: ADMIT Obstetrics & Gynecology
PROC: 10E0XZZ Delivery of Products of Conception, External Approach (ICD-10-PCS; principal; 2020-01-21)
PROC: 10907ZC Drainage of Amniotic Fluid, Therapeutic from Products of Conception, Via Natural or Artificial Opening (ICD-10-PCS; 2020-01-21)
PROC: 3E033VJ Introduction of Other Hormone into Peripheral Vein, Percutaneous Approach (ICD-10-PCS; 2020-01-21)
PROC: 0UQMXZZ Repair Vulva, External Approach (ICD-10-PCS; 2020-01-21)
DX: O24.02 Pre-existing type 1 diabetes mellitus, in childbirth (principal); Z37.0 Single live birth; O99.214 Obesity complicating childbirth; O71.82 Other specified trauma to perineum and vulva; O69.1XX0 Labor and delivery complicated by cord around neck, with compression, not applicable or unspecified; O43.193 Other malformation of placenta, third trimester; O99.52 Diseases of the respiratory system complicating childbirth; J45.909 Unspecified asthma, uncomplicated; E10.8 Type 1 diabetes mellitus with unspecified complications; Z3A.39 39 weeks gestation of pregnancy
CPT/HCPCS: J1815; J2405; J2540; J2590; J2795; J7030

== ENCOUNTER 2020-02-12 14:52 | Emergency (ER) | payer MEDICAID ==
[~2020-02-12] VITALS: Ht 170.2 cm; Wt 110.9 kg
[~2020-02-12 14:52] MED LIST changes: +PROAIR HFA0.09 MG/AC IH
[2020-02-12 14:59] VITALS: TEMP 97.1
[2020-02-12] MEDS ORDERED: CEPHALEXIN500 M1 PO (16:17)
[2020-02-12 16:36] VITALS: BP 137/85; PULSE 95
== END 2020-02-12 16:36 | disposition home or self-care (01) ==
LOC: COL.ER 14:52
DX: L03.116 Cellulitis of left lower limb (principal); E11.9 Type 2 diabetes mellitus without complications; J45.909 Unspecified asthma, uncomplicated; Z79.4 Long term (current) use of insulin

== ENCOUNTER 2020-04-03 23:40 | Emergency (ER) | payer MEDICAID ==
[~2020-04-03] VITALS: Ht 170.2 cm; Wt 113.6 kg
[~2020-04-03 23:40] MED LIST changes: +CEPHALEXIN500 M1 PO
[2020-04-03 23:43] VITALS: TEMP 97.8
[2020-04-04 00:08] LABS: BASO # 0.1 (0.0-0.2); BASO % 0.9 % (0.0-2.0); EOS # 0.2 (0.0-0.7); EOS % 2.7 % (0-4.0); GRAN # 4.1 (1.4-6.5); GRAN % 47.6 % (42.2-75.2); HEMATOCRIT 40.3 % (37.0-47.0); HEMOGLOBIN 12.9 g/dl (12.5-16.0); LYMPH # 3.6 (1.2-3.4); LYMPH % 42.1 % (20.0-51.0); MEAN CELL VOLUME 81 fl (80.0-100.0); MEAN CORPUSCULAR HEMOGLOBIN 26 pg (27.0-31.0); MEAN CORPUSCULAR HGB CONC 32 g/dl (33.0-37.0); MEAN PLATELET VOLUME 8.9 fl (7.4-10.4); MONO # 0.5 (0.1-0.6); MONO % 6.2 % (1.7-9.3); PLATELET COUNT 304 K/mm3 (130-400); RED BLOOD COUNT 4.98 M/mm3 (4.10-5.30); REDCELL DISTRIBUTION WIDTH-CV 15.6 % (11.5-14.5)
[2020-04-04 00:13] LABS: COLLECTION METHOD CLEAN CATCH
[2020-04-04 00:21] LABS: PH 5 (5-8); SQUAMOUS EPITHELIAL None Seen /hpf; URINE APPEARANCE Clear; URINE BACTERIA None Seen /hpf; URINE BILIRUBIN Negative (NEGATIVE); URINE BLOOD Negative (NEGATIVE); URINE COLOR Yellow; URINE GLUCOSE 3+ (NEGATIVE); URINE KETONE Negative (NEGATIVE); URINE LEUKOCYTE ESTERASE Negative (NEGATIVE); URINE NITRATE Negative (NEGATIVE); URINE PROTEIN(semi-quant) Negative (NEGATIVE); URINE RBC None Seen /hpf; URINE UROBILINOGEN Negative (NEGATIVE)
[2020-04-04 00:43] VITALS: BP 132/91; PULSE 76
== END 2020-04-04 00:48 | disposition home or self-care (01) ==
LOC: COL.ER 23:40
PROVIDERS: Nurse Practitioner Primary Care
DX: N93.9 Abnormal uterine and vaginal bleeding, unspecified (principal); E11.9 Type 2 diabetes mellitus without complications; J45.909 Unspecified asthma, uncomplicated; Z87.442 Personal history of urinary calculi; Z87.891 Personal history of nicotine dependence; Z79.4 Long term (current) use of insulin

== ENCOUNTER 2020-05-13 16:51 | Emergency (ER) | payer MEDICAID ==
[~2020-05-13] VITALS: Ht 170.2 cm; Wt 111.4 kg
[2020-05-13 17:21] LABS: COLLECTION METHOD CLEAN CATCH
[2020-05-13 17:30] LABS: MUCOUS Present /lpf; PH 5 (5-8); SQUAMOUS EPITHELIAL 0-2 /hpf; URINE APPEARANCE Cloudy; URINE BACTERIA Moderate /hpf; URINE BILIRUBIN Negative (NEGATIVE); URINE BLOOD 2+ (NEGATIVE); URINE COLOR Yellow; URINE GLUCOSE 1+ (NEGATIVE); URINE KETONE Negative (NEGATIVE); URINE LEUKOCYTE ESTERASE 3+ (NEGATIVE); URINE NITRATE Negative (NEGATIVE); URINE PROTEIN(semi-quant) 2+ (NEGATIVE); URINE RBC 20-50 /hpf; URINE UROBILINOGEN Negative (NEGATIVE)
[2020-05-13] MEDS ORDERED: CEFTIN 250250 MG/TAB PO (18:18)
[2020-05-13 18:23] VITALS: BP 136/74; PULSE 82; TEMP 97.6
== END 2020-05-13 18:24 | disposition home or self-care (01) ==
LOC: COL.ER 16:51
PROVIDERS: Emergency Medicine
DX: N39.0 Urinary tract infection, site not specified (principal); F17.210 Nicotine dependence, cigarettes, uncomplicated; Z32.02 Encounter for pregnancy test, result negative; Z87.442 Personal history of urinary calculi; Z79.4 Long term (current) use of insulin

== ENCOUNTER 2020-06-30 03:43 | Emergency (ER) | payer MEDICAID ==
[~2020-06-30] VITALS: Ht 170.2 cm; Wt 113.6 kg
[2020-06-30 04:08] VITALS: TEMP 98.2
[2020-06-30 04:35] LABS: STREP SCREEN NEGATIVE
[2020-06-30 05:27] LABS: BASO % 0.4 % (0.0-2.0); EOS # 0.1 (0.0-0.7); EOS % 0.7 % (0-4.0); GRAN # 5.3 (1.4-6.5); GRAN % 64.8 % (42.2-75.2); HEMATOCRIT 44.6 % (37.0-47.0); HEMOGLOBIN 14.4 g/dl (12.5-16.0); LYMPH # 2.2 (1.2-3.4); LYMPH % 26.7 % (20.0-51.0); MEAN CELL VOLUME 83 fl (80.0-100.0); MEAN CORPUSCULAR HEMOGLOBIN 27 pg (27.0-31.0); MEAN CORPUSCULAR HGB CONC 32 g/dl (33.0-37.0); MEAN PLATELET VOLUME 9.4 fl (7.4-10.4); MONO # 0.5 (0.1-0.6); MONO % 6.7 % (1.7-9.3); PLATELET COUNT 238 K/mm3 (130-400); RED BLOOD COUNT 5.37 M/mm3 (4.10-5.30); REDCELL DISTRIBUTION WIDTH-CV 13.2 % (11.5-14.5)
[2020-06-30 05:37] LABS: ALBUMIN 4.4 gm/dL (3.5-5.0); BILIRUBIN,TOTAL 0.4 mg/dL (0.0-1.0); CALCIUM 9.5 mg/dL (8.4-10.2); CREATININE, serum 0.62 (0.52-1.25); POTASSIUM 3.9 mmol/L (3.4-5.0); TOTAL PROTEIN 8.2 gm/dL (6.4-8.2)
[2020-06-30 06:30] VITALS: BP 145/88; PULSE 84
== END 2020-06-30 06:40 | disposition home or self-care (01) ==
LOC: COL.ER 03:43
PROVIDERS: Emergency Medicine
DX: U07.1 COVID-19 (principal); J45.909 Unspecified asthma, uncomplicated; E11.9 Type 2 diabetes mellitus without complications; Z79.4 Long term (current) use of insulin
CPT/HCPCS: J1100; J7030

== ENCOUNTER 2020-08-23 15:28 | Emergency (ER) | payer MEDICAID ==
[~2020-08-23] VITALS: Ht 170.2 cm; Wt 118.2 kg
[2020-08-23 15:36] VITALS: BP 145/84; TEMP 98.7
[2020-08-23] MEDS ORDERED: MOTRIN 400400 MG/TAB PO (16:32)
[2020-08-23] MEDS ORDERED: ROBAXIN 50500 MG/TAB PO (16:32)
[2020-08-23 17:14] VITALS: PULSE 89
== END 2020-08-23 17:13 | disposition home or self-care (01) ==
LOC: COL.ER 15:28
DX: U07.1 COVID-19 (principal); M25.532 Pain in left wrist
CPT/HCPCS: J1885

== ENCOUNTER 2020-10-30 18:40 | Observation (INO) | payer MEDICAID ==
[~2020-10-30] VITALS: Ht 170.2 cm; Wt 121.4 kg
[~2020-10-30 18:40] MED LIST changes: +MOTRIN 400400 MG/TAB PO; +ROBAXIN 50500 MG/TAB PO
[2020-10-30 19:23] LABS: HEMATOCRIT 44.4 % (37.0-47.0); HEMOGLOBIN 14.5 g/dl (12.5-16.0); MEAN CELL VOLUME 85 fl (80.0-100.0); MEAN CORPUSCULAR HEMOGLOBIN 28 pg (27.0-31.0); MEAN CORPUSCULAR HGB CONC 33 g/dl (33.0-37.0); MEAN PLATELET VOLUME 9.1 fl (7.4-10.4); PLATELET COUNT 324 K/mm3 (130-400); RED BLOOD COUNT 5.25 M/mm3 (4.10-5.30); REDCELL DISTRIBUTION WIDTH-CV 13.3 % (11.5-14.5)
[2020-10-30 19:32] LABS: ALBUMIN 4.4 gm/dL (3.5-5.0); BILIRUBIN,TOTAL 0.3 mg/dL (0.0-1.0); CALCIUM 9.4 mg/dL (8.4-10.2); CREATININE, serum 0.5 (0.52-1.25); POTASSIUM 3.1 mmol/L (3.4-5.0); TOTAL PROTEIN 7.5 gm/dL (6.4-8.2)
[2020-10-30 19:52] LABS: BAND 5 % (0-10); EOSINOPHIL 1 % (0-4); LYMPHOCYTE 48 % (20.0-51.0); NEUTROPHILS 39 % (42.0-75.2); PLATELET ESTIMATE NORMAL (NORMAL)
[2020-10-30 21:43] LABS: COLLECTION METHOD CLEAN CATCH
[2020-10-30 21:57] LABS: PH 5 (5-8); SQUAMOUS EPITHELIAL 0-2 /hpf; URINE APPEARANCE Clear; URINE BACTERIA None Seen /hpf; URINE BILIRUBIN Negative (NEGATIVE); URINE BLOOD Negative (NEGATIVE); URINE COLOR Straw; URINE GLUCOSE Negative (NEGATIVE); URINE KETONE Negative (NEGATIVE); URINE LEUKOCYTE ESTERASE Negative (NEGATIVE); URINE NITRATE Negative (NEGATIVE); URINE PROTEIN(semi-quant) Negative (NEGATIVE); URINE RBC None Seen /hpf; URINE UROBILINOGEN Negative (NEGATIVE)
--- NOTE | 2020-10-30 23:56 | NUR ---
PATIENT ARRIVED TO UNIT FROM ER, A+OX4. REPORT ABDOMINAL PAIN 7/10 RADIATED TO HER BACK, C/O NAUSEA NO VOMITING. PATIENT INDEPENDENT. ORIENTED TO ROOM, CALL IN REACH, BED LOW AND LOCKED. HOME MEDICATION REVIEWED. GI CONSULTED. PATIENT IS NPO. WILL CONTINUE TO MONITOR.
[2020-10-31] MEDS ORDERED: ZOLOFT 100MG100 MG PO (00:06)
[2020-10-31] MEDS ORDERED: LIPITOR 10MG10 MG (00:07)
[2020-10-31] MEDS ORDERED: GLUCOTROL 5M5 MG/TAB PO (00:10)
[2020-10-31 00:15] VITALS: BP 145/70; PULSE 66; TEMP 97.6
[2020-10-31 04:33] VITALS: BP 140/77; PULSE 81; TEMP 97.6
[2020-10-31 07:11] LABS: BASO # 0.1 (0.0-0.2); BASO % 0.6 % (0.0-2.0); EOS # 0.1 (0.0-0.7); EOS % 1.3 % (0-4.0); GRAN # 5.2 (1.4-6.5); GRAN % 61.2 % (42.2-75.2); HEMATOCRIT 42.2 % (37.0-47.0); HEMOGLOBIN 13.4 g/dl (12.5-16.0); LYMPH # 2.6 (1.2-3.4); LYMPH % 30.7 % (20.0-51.0); MEAN CELL VOLUME 86 fl (80.0-100.0); MEAN CORPUSCULAR HEMOGLOBIN 27 pg (27.0-31.0); MEAN CORPUSCULAR HGB CONC 32 g/dl (33.0-37.0); MEAN PLATELET VOLUME 9.7 fl (7.4-10.4); MONO # 0.5 (0.1-0.6); MONO % 5.5 % (1.7-9.3); PLATELET COUNT 267 K/mm3 (130-400); RED BLOOD COUNT 4.92 M/mm3 (4.10-5.30); REDCELL DISTRIBUTION WIDTH-CV 13.5 % (11.5-14.5)
[2020-10-31 07:24] LABS: ALBUMIN 3.6 gm/dL (3.5-5.0); BILIRUBIN,TOTAL 0.4 mg/dL (0.0-1.0); CALCIUM 8.2 mg/dL (8.4-10.2); CREATININE, serum 0.48 (0.52-1.25); POTASSIUM 3.8 mmol/L (3.4-5.0); TOTAL PROTEIN 6.6 gm/dL (6.4-8.2)
[2020-10-31 08:00] VITALS: BP 124/72; PULSE 81; TEMP 98.6
[2020-10-31 13:00] VITALS: BP 131/77; PULSE 84; TEMP 98.5
--- NOTE | 2020-10-31 13:19 | NUR ---
Chaplain schmidt and offered support with patient.
--- NOTE | 2020-10-31 13:44 | NUR ---
Frank met with the pt who stated her preference to return home once medically stable. The pt lives at home with her ,Victorino (ph# [phone]). They have 3 children. The pt does not have a DPAO-Hc and is not interested in one at this time. The pt is independent on all ADLs and does not use any DME. The pt pcp is mile Boyd PA and get her medications from [facility] No other needs stated at this time. Frank to await further recommendations and follow up as needed. D/C: Home with family.
--- NOTE | 2020-10-31 17:51 | NUR ---
PT UP TO SHOWER INDEPENDENTLY
--- NOTE | 2020-10-31 20:00 | NUR ---
PT DENIES FLATUS. ENCOURAGED AMBULATION, OUT IN HALLWAY AT THIS TIME.
[2020-10-31 20:33] VITALS: BP 150/78; PULSE 76; TEMP 98.6
--- NOTE | 2020-10-31 21:14 | NUR ---
SPOKE WITH DR BECERRIL REGARDING PTS DESIRE FOR ACCUCHECKS AND S/S INSULIN. NEW ORDER GIVEN, ALSO RESTARTED ZOLOFT.
--- NOTE | 2020-10-31 22:28 | NUR ---
MEDICATED WITH DILAUDID 0.5MG IVP FOR PAIN TO UPPER ABD 6/10.
[2020-11-01] VITALS (7 sets, daily range): BP systolic 112–142; BP diastolic 50–81; PULSE 70–97; TEMP 98–98.9
--- NOTE | 2020-11-01 01:20 | NUR ---
MEDICATED WITH DILAUDID 0.5MG IVP FOR ABD PAIN 09/10.
--- NOTE | 2020-11-01 03:18 | NUR ---
MEDICATED WITH DILAUDID 0.5MG IVP WITH ZOFRAN 4MG IVP FOR PAIN AND NAUSEA. PT REPORTS NO TRYING ANYTHING ORALLY SINCE LAST NIGHT. IV ZOSYN CONNECTED AND INFUSING WITHOUT PROBLEM.
--- NOTE | 2020-11-01 07:02 | NUR ---
MEDICATED WITH DILAUDID 0.5MG IVP FOR ABD PAIN, AFTER PT WALKED IN HALLWAY. STILL NO FLATUS.
[2020-11-01 07:05] LABS: HEMATOCRIT 43.7 % (37.0-47.0); HEMOGLOBIN 13.7 g/dl (12.5-16.0); MEAN CELL VOLUME 87 fl (80.0-100.0); MEAN CORPUSCULAR HEMOGLOBIN 27 pg (27.0-31.0); MEAN CORPUSCULAR HGB CONC 31 g/dl (33.0-37.0); MEAN PLATELET VOLUME 9.4 fl (7.4-10.4); PLATELET COUNT 253 K/mm3 (130-400); RED BLOOD COUNT 5.03 M/mm3 (4.10-5.30); REDCELL DISTRIBUTION WIDTH-CV 13.6 % (11.5-14.5)
[2020-11-01 07:21] LABS: CALCIUM 8.6 mg/dL (8.4-10.2); CREATININE, serum 0.6 (0.52-1.25); POTASSIUM 3.7 mmol/L (3.4-5.0)
--- NOTE | 2020-11-01 11:14 | NUR ---
PT UP WALKING HALLS INDENPENDENTLY. CONTINUES TO DENY PASSING LONNIE. BOWEL SOUNDS ABSENT. TOLERATING CLEAR WITH NAUSEA MEDICATIONS. IV PAIN MEDICATION KEEPING PAIN CONTROLLED. POTASSIUM REPLACED ORDERED.
--- NOTE | 2020-11-01 20:00 | NUR ---
PT AMBULATING IN HALLWAY, DENIES FLATUS. IVF INFUSING TO LEFT AC WITHOUT PROBLEM. IV ANTIBIOTIC CONNECTED. PT REQUESTING PAIN MEDS, DILAUDID AND ZOFRAN GIVEN IVP AT THIS TIME. ABD SOFT WITH ACTIVE BOWEL SOUNDS. TAKING CLEAR LIQUIDS.
--- NOTE | 2020-11-01 23:07 | NUR ---
PT MEDICATED WITH DILAUDID 0.5MG IVP FOR PAIN 09/10 TO ABD.
--- NOTE | 2020-11-02 02:00 | NUR ---
IV ANTIBIOTIC INFUSING WITHOUT PROBLEM. DILAUDID 0.5MG IVP FOR PAIN 07/11.
--- NOTE | 2020-11-02 03:00 | NUR ---
IV antibiotic complete, pt resting comfortably.
[2020-11-02 03:54] VITALS: BP 126/68; PULSE 76; TEMP 97.9
--- NOTE | 2020-11-02 04:36 | NUR ---
PT COMPLAINS OF RUQ PAIN, DILAUDID 0.5MG IVP GIVEN.
[2020-11-02 07:34] LABS: BASO # 0.1 (0.0-0.2); BASO % 0.7 % (0.0-2.0); EOS # 0.1 (0.0-0.7); EOS % 1.7 % (0-4.0); GRAN # 4.2 (1.4-6.5); GRAN % 58.7 % (42.2-75.2); HEMATOCRIT 41.5 % (37.0-47.0); LYMPH # 2.2 (1.2-3.4); LYMPH % 31.4 % (20.0-51.0); MEAN CELL VOLUME 87 fl (80.0-100.0); MEAN CORPUSCULAR HEMOGLOBIN 27 pg (27.0-31.0); MEAN CORPUSCULAR HGB CONC 31 g/dl (33.0-37.0); MEAN PLATELET VOLUME 9.4 fl (7.4-10.4); MONO # 0.5 (0.1-0.6); MONO % 7.1 % (1.7-9.3); PLATELET COUNT 241 K/mm3 (130-400); RED BLOOD COUNT 4.75 M/mm3 (4.10-5.30); REDCELL DISTRIBUTION WIDTH-CV 13.4 % (11.5-14.5)
[2020-11-02 07:47] LABS: ALBUMIN 3.5 gm/dL (3.5-5.0); BILIRUBIN,TOTAL 0.7 mg/dL (0.0-1.0); CALCIUM 8.4 mg/dL (8.4-10.2); CREATININE, serum 0.66 (0.52-1.25); POTASSIUM 3.4 mmol/L (3.4-5.0); TOTAL PROTEIN 6.6 gm/dL (6.4-8.2)
[2020-11-02 08:26] VITALS: BP 136/76; PULSE 88; TEMP 98.1
--- NOTE | 2020-11-02 08:35 | NUR ---
Patient rating her pain 7/10. Requesting pain & nausea medication. Pain located to RU. Patient set up for shower. Will monitor.
--- NOTE | 2020-11-02 10:20 | NUR ---
Initial visit; Patient thanked Edge Kitter for offering prayer and God's blessings.
[2020-11-02 11:35] VITALS: BP 142/74; PULSE 81; TEMP 98.3
--- NOTE | 2020-11-02 14:15 | NUR ---
Patient request pain medication. medication per orders. Pain remains to ruq. She has been NPO. ICG green per orders. Significant other at bedside.
--- NOTE | 2020-11-02 15:30 | NUR ---
Patient to the OR with Gail pacu nurse. voided to prior OR. Miltony off. Pre op checklist completed.
[2020-11-02] MEDS ORDERED: MOTRIN 600600 MG/TAB PO (18:15)
[2020-11-02] MEDS ORDERED: NORCO 325 MG-51 TAB PO ×2 (18:16)
[2020-11-02 20:54] VITALS: BP 148/84; PULSE 109; TEMP 98.3
--- NOTE | 2020-11-02 21:15 | NUR ---
Pt. sitting up in bed. Pt. is A&OX3, shift assessment complete. INT to lt. ac patent. Pt. reports pain at a [address] Covarrubias notified that pt. didn't feel ready for discharge. Dr. Covarrubias agreeable. Pt. given pain meds per orders. Pt. denies further needs, call light within reach.
[2020-11-03 00:35] VITALS: BP 132/66; PULSE 92; TEMP 98.1
[2020-11-03 03:47] VITALS: BP 140/69; PULSE 84; TEMP 98.2
[2020-11-03 08:00] VITALS: BP 126/59; PULSE 88; TEMP 98.3
--- NOTE | 2020-11-03 10:47 | NUR ---
Walked patient around surgical area. She is currently in bed, call light in reach and indpendent with her cares. Pain is 6/10 at this time and given prn pain meds. Dr. Vizcarra saw patient, but wanted to get her pain undercontrol prior to discharging. Will continue to monitor.
[2020-11-03 12:00] VITALS: BP 122/56; PULSE 69; TEMP 98.2
[2020-11-03 15:42] VITALS: BP 143/67; PULSE 76; TEMP 97.9
[2020-11-03] MEDS ORDERED: AMOXICILLIN 8751 TAB PO (15:43)
[2020-11-03] MEDS ORDERED: PERCOCET 325 MG1 TA2 PO (15:44)
--- NOTE | 2020-11-03 17:46 | NUR ---
Patient Health Summary, Discharge Summary, and Home Meds printed and reviewed with patient. Stressed importance of follow up appointment. Belongings gathered by patient and her including glasses, phone and pest control technician. Patient transported via wheelchair by SABINA/Carolin and seatbelted for ride home. Patient denied questions.
--- NOTE | 2020-11-03 17:53 | NUR ---
Call placed to Dr. Vizcarra per patient request for a work release. See forms in Discharge EMR.
== END 2020-11-03 17:54 | disposition home or self-care (01) ==
LOC: COL.ER 18:40 → SURG 20:34
PROVIDERS: Emergency Medicine; ADMIT Surgery
DX: K80.10 Calculus of gallbladder with chronic cholecystitis without obstruction (principal); E11.9 Type 2 diabetes mellitus without complications; E78.5 Hyperlipidemia, unspecified; I10 Essential (primary) hypertension; F41.9 Anxiety disorder, unspecified; F32.9 Major depressive disorder, single episode, unspecified; J45.909 Unspecified asthma, uncomplicated; Z20.822 Contact with and (suspected) exposure to COVID-19; Z79.4 Long term (current) use of insulin; Z79.899 Other long term (current) drug therapy
CPT/HCPCS: C9113; G0378; J1100; J1170; J1815; J1885; J2270; J2405; J2543; J2704; J3010; J3480; J7030; J7120; Q9967

== ENCOUNTER 2020-12-05 19:15 | Emergency (ER) | payer MEDICAID ==
[~2020-12-05] VITALS: Ht 170.2 cm; Wt 113.6 kg
[~2020-12-05 19:15] MED LIST changes: +AMOXICILLIN 8751 TAB PO; +GLUCOTROL 5M5 MG/TAB PO; +LIPITOR 10MG10 MG; +ZOLOFT 100MG100 MG PO
[2020-12-05 19:32] VITALS: TEMP 97.9
[2020-12-05 19:59] LABS: COLLECTION METHOD CLEAN CATCH
[2020-12-05 20:21] LABS: MUCOUS Present /lpf; PH 5 (5-8); URINE APPEARANCE Hazy; URINE BACTERIA None Seen /hpf; URINE BILIRUBIN Negative (NEGATIVE); URINE BLOOD Negative (NEGATIVE); URINE COLOR Yellow; URINE GLUCOSE 3+ (NEGATIVE); URINE KETONE Trace (NEGATIVE); URINE LEUKOCYTE ESTERASE 1+ (NEGATIVE); URINE NITRATE Negative (NEGATIVE); URINE PROTEIN(semi-quant) 2+ (NEGATIVE); URINE RBC 0-2 /hpf; URINE UROBILINOGEN Negative (NEGATIVE)
[2020-12-05 20:37] VITALS: BP 144/92; PULSE 111
== END 2020-12-05 20:39 | disposition home or self-care (01) ==
LOC: COL.ER 19:15
PROVIDERS: Nurse Practitioner
DX: Z20.2 Contact with and (suspected) exposure to infections with a predominantly sexual mode of transmission (principal); E11.9 Type 2 diabetes mellitus without complications; J45.909 Unspecified asthma, uncomplicated; E78.5 Hyperlipidemia, unspecified; Z79.4 Long term (current) use of insulin; Z79.899 Other long term (current) drug therapy
CPT/HCPCS: J0696